=== PATIENT | male | born 1970 | race Caucasian/White ===

== ENCOUNTER 2021-01-20 19:35 | Emergency (ER) | payer MEDICAID ==
[~2021-01-20] VITALS: Ht 175.3 cm; Wt 86.2 kg
[2021-01-20 19:48] VITALS: BP 145/101
[2021-01-20 20:35] VITALS: BP 145/101
== END 2021-01-20 20:35 ==
LOC: MED 19:35
DX: R03.0 Elevated blood-pressure reading, without diagnosis of hypertension (principal); L40.9 Psoriasis, unspecified; F17.200 Nicotine dependence, unspecified, uncomplicated; Z02.89 Encounter for other administrative examinations
CPT/HCPCS: 99283